=== PATIENT | female | born 1980 | race African-American/Black ===

== ENCOUNTER 2017-12-06 19:18 | Emergency (ER) | payer MEDICAID, SELFPAY ==
[2017-12-06] MEDS ORDERED: Ondansetron ODT 4 MG TAB ONE (21:07)
[2017-12-06 21:56] LABS: #Lymphocytes 1.9 thou/uL (1.20-3.40); #Monocytes 0.5 thou/uL (0.11-0.59); #Neutrophils 4.9 thou/uL (1.40-6.50); %Basophils 0.3 % (0.0-1.0); %Eosinophils 0.2 % (0.0-10.0); %Lymphocytes 26.1 % (21.0-51.0); %Neutrophils 66.4 % (42.0-75.0); Hemoglobin 12.7 g/dL (12.0-16.0); Mean Corpuscular Hemoglobin 25.7 pg (27.0-31.0); Mean Corpuscular Volume 80.4 fL (78.0-98.0); Mean Platelet Volume 8.2 fL (7.4-10.4); Platelet Count 382 thou/uL (130-400); Red Blood Cell (RBC) Count 4.95 mill/uL (4.20-5.40); White Blood Cell (WBC) Count 7.3 thou/uL (4.8-10.8)
[2017-12-06 22:43] LABS: ALT (SGPT) 7 U/L (8-55); AST (SGOT) 16 U/L (5-34); Albumin 4.4 g/dL (3.5-5.0); Alkaline Phosphatase 71 U/L (40-150); Anion Gap 18 mmol/L (10-20); BUN (Urea Nitrogen) 13 mg/dL (7.0-18.7); Bilirubin, Total 1.1 mg/dL (0.2-1.2); Calc. Creatinine Clearance 0 mL/min (70-130); Carbon Dioxide 24 mmol/L (22-29); Chloride 101 mmol/L (98-107); Estimated GFR-MDRD Greater than 90; Globulin 4.7 g/dL (2.4-3.5); Glucose 92 mg/dL (70-105); Potassium 4.3 mmol/L (3.5-5.1); Protein, Total 9.1 g/dL (6.0-8.3); Sodium 139 mmol/L (136-145)
[2017-12-06 23:04] LABS: Bilirubin Small (Negative); Blood, Urine Large (Negative); Clarity CLOUDY (Clear); Glucose, Urine (Dipstick) Negative (Negative); Leukocyte Small (Negative); Nitrite Negative (Negative); Protein, Urine (Dipstick) 100 mg/dL (Neg-Trace); Specific Gravity, Urine 1.036 (1.002-1.036)
[2017-12-06 23:06] LABS: Bacteria/HPF None Seen HPF (None Seen); RBC/HPF GREATER THAN 50-TNTC HPF (0-3)
[2017-12-06 23:08] LABS: Pathc Cast-AUWi Flag 3.48 (0-2.49)
[2017-12-06 23:16] LABS: Hyaline Casts/LPF 0-3 HYALINE CAST LPF (0-3 Hyaline)
[2017-12-06 23:18] LABS: Trichomonas/HPF 2+ HPF (None Seen)
[2017-12-07 00:45] LABS: Pregnancy Test - Urine (BHCG) Negative (Negative)
[2017-12-07 00:46] LABS: Pregu Control Background? CLEAR/WHITE (CLR/WHITE); Pregu Control Bar Appear? YES (CONTROL BAR); Specific Gravity 1.036 (1.002-1.036)
[2017-12-07 20:57] LABS: Chlamydia by PCR Not Detected (NotDetected); GC by PCR Not Detected (NotDetected)
== END 2017-12-07 00:45 | disposition home or self-care (01) ==
LOC: ERS 19:18
DX: E86.0 Dehydration (principal); A59.9 Trichomoniasis, unspecified
CPT/HCPCS: 80053; 81003; 81015; 81025; 85025; 87086; 87480; 87491; 87510; 87591; 87660; 93005; 96360; Q0162